=== PATIENT | female | born 1970 | race Caucasian/White ===

== ENCOUNTER 2017-04-26 05:22 | Observation (INO) | payer OTHER ==
--- NOTE | ~2017-04-26 | DS ---
Discharge Summary [facility] [address] [place]. [address] NAME: KIN MADDEN : 74 STATUS : DIS Rosa PAT#: [id number] AGE: 47 ADM/REG DATE : 04/26/17 MR#: [id number] REPORT SERV DATE: 04/28/17 DICTATED BY: HERACLIO GAGE DATE: 04/28/17 REPORT STATUS : Draft TRANSCRIBED BY: MODL DATE: 04/28/17 ADMISSION DATE: 04/26/2017 DISCHARGE DATE: 04/28/2017 DISCHARGE DIAGNOSES: 1. Urinary tract infection, positive Proteus mirabilis. 2. Nausea and vomiting, resolved. 3. Chronic lymphocytic leukemia. 4. Diarrhea, resolved. 5. Hypokalemia, replaced. IMAGING: CT abdomen and pelvis, 04/26/2017, impression: Evidence for retroperitoneal adenopathy extending into the common iliac chains bilaterally centrally, consistent with history of CLL. No organomegaly is noted. LABORATORY DATA: WBC is 5.3, hemoglobin 11.1, hematocrit 32.1, platelet count is 124. Sodium is 144, potassium is 3.4, chloride is 110, CO2 is 25, BUN is 2, creatinine 0.75, glucose is 78, calcium is 8.3, magnesium is 2.1. COURSE OF HOSPITAL STAY: Please refer to history and physical dictated by Dr. Franck Fontana on 04/26/2017 for complete admission details. This patient is a 47-year-old patient who presented to [facility]'s Emergency Room with complaints of nausea, vomiting, fever, and chills. She does present with a history of CLL and possible B-cell lymphoma, is under the care of Dr. Perez. At this time, she is on oral chemo. 1. UTI. Positive Proteus mirabilis. The patient was admitted to the hospital under observation. Urine specimen was collected. The patient was initially started on Rocephin. The patient was discharged home on Duricef, first dose to be given prior to discharge. The patient will follow up with her primary care. The patient did state that she was having no burning with urination and no increase in frequency upon discharge. 2. Nausea and vomiting, resolved. Upon admission, the patient was having nausea and vomiting. IV fluids were initiated as well as antiemetics. This did resolve within 24 hours. The patient has been tolerating a regular diet. 3. CLL. The patient is under the care Dr. Perez, is on oral chemotherapy. The patient was evaluated by Dr. Shay during her hospital stay. The patient's Imbruvica was held during her stay. She has been advised to restart it following completion of her antibiotic. She did state understanding. 4. Diarrhea. The patient did have complaints of a loose stool upon admission. Stool studies were completed which were negative. Upon discharge, the patient stated this had resolved. 5. Hypokalemia. The patient's potassium was 3.4, this was replaced prior to discharge. DISCHARGE MEDICATIONS: 1. Duricef 500 mg one p.o. twice daily. Discharge Summary [address] [address] NAME: KIN MADDEN : 74 STATUS : DIS Rosa PAT#: [id number] AGE: 47 ADM/REG DATE : 04/26/17 MR#: [id number] REPORT SERV DATE: 04/28/17 DICTATED BY: HERACLIO GAGE DATE: 04/28/17 REPORT STATUS : Draft TRANSCRIBED BY: CECILIA DATE: 04/28/17 2. Lexapro 10 mg one p.o. daily. 3. Imbruvica 140 mg one p.o. every morning to restart after completion of antibiotics. 4. Zantac 150 mg one p.o. daily. 5. Multivitamin p.o. daily. 6. Vitamin B12 sublingual daily. This patient is being discharged home in a hemodynamically stable condition. She will follow up with her primary care and with Dr. Perez. Prescriptions were provided, antibiotic and antiemetic. The patient did agree with the treatment plan. Discharge order took less than 30 minutes. DICTATED BY: Heraclio Gage NP [facility]/CECILIA Heraclio Gage NP / [id number] CC: Sotero Negrete M.D.
--- NOTE | ~2017-04-26 | HP ---
History And Physical [place] [id number] [facility] [place]. [address] NAME: KIN MADDEN : 74 STATUS : ADM Rosa PAT#: [id number] AGE: 47 ADM/REG DATE : 04/26/17 MR#: [id number] REPORT SERV DATE: 04/26/17 DICTATED BY: GARFIELD SAGASTUME DATE: 04/26/17 REPORT STATUS : Draft TRANSCRIBED BY: MODL DATE: 04/26/17 DATE OF ADMISSION: 04/26/2017 CHIEF COMPLAINT: A 47-year-old female with CLL and possible B-cell lymphoma as well, now presenting with nausea, vomiting, fevers, chills. HISTORY OF PRESENT ILLNESS: The patient's history was obtained through careful interview with the patient and coupled with review of [facility] and [employer] medical records. The patient was first diagnosed with CLL in 2011, started chemotherapy, and went into remission within a year. She apparently had a recurrence in 2015, has been on an oral chemotherapy agent ever since. There is a possibility of lymphadenopathy and secondary lymphoma as well (?), but reviewing our records, we are unable to find a CT scan to verify this. There was a lymph node biopsy during a cholecystectomy in 2011 that showed B-cell lymphoma. But on 04/23/2017, the patient had sudden onset of illness with nausea, vomiting, diarrhea with watery stool about five or six a day. She did have a very poor appetite. She has had almost nothing to eat in about 24 hours now. She describes fevers, chills, hot flashes, and diaphoresis. She has had light headedness. No weight loss. No confusion. She describes upper abdominal discomfort, soreness, aching spasm like quality, 4 to 5/10 severity. She has had mild dysuria and a foul odor to her urine but no urine frequency. No shortness of breath. No cough. No chest pain. REVIEW OF SYSTEMS: Otherwise, a 14-point review of systems was obtained and was negative. PAST MEDICAL HISTORY: 1. CLL. 2. B-cell lymphoma (?). 3. Obstructive sleep apnea, but does not use CPAP. 4. B12 deficiency. 5. Asthma, seasonal. 6. Urinary tract infection. 7. Depression and anxiety. 8. No cardiac disease. PAST SURGICAL HISTORY: 1. Cholecystectomy. 2. Port-A-Cath placement. History And Physical [place] [address] [place]. [address] NAME: KIN MADDEN : 74 STATUS : ADM Rosa PAT#: [id number] AGE: 47 ADM/REG DATE : 04/26/17 MR#: [id number] REPORT SERV DATE: 04/26/17 DICTATED BY: GARFIELD SAGASTUME DATE: 04/26/17 REPORT STATUS : Draft TRANSCRIBED BY: CECILIA DATE: 04/26/17 3. Tubal ligation. ALLERGIES: SULFA. SOCIAL HISTORY: She is . Lives in [place], [place]. No tobacco abuse. No alcohol abuse. She works for [employer] and volunteers for [employer]. She has two children. FAMILY HISTORY: Mother and father with obstructive sleep apnea. Strong family history of heart disease and diabetes. CURRENT MEDICATIONS: Unknown at this time. The patient does take some kind of oral chemotherapy regimen. We will ask pharmacy to pursue medication list during the daytime hours. PHYSICAL EXAMINATION: VITAL SIGNS: Temperature 98.5, pulse 106, blood pressure 129/80, respiratory rate 18, and O2 saturation 94% on room air. GENERAL: A pleasant, cooperative female, in no evidence of distress at this time. HEENT: Pupils equal, round, and reactive to light. No conjunctival pallor. No scleral icterus. Nares are patent. Oropharynx is clear of obstruction. Moist mucous membranes. NECK: Trachea midline. No thyromegaly. LYMPH: No cervical lymphadenopathy. No supraclavicular lymphadenopathy. No bilateral inguinal lymphadenopathy. RESPIRATORY: Clear to auscultation at bases. No wheezes, rales, or rhonchi. Normal respiratory effort. CARDIOVASCULAR: Tachycardic. Regular rhythm. No murmurs, rubs, or gallops. No extremity edema is appreciated. ABDOMEN: Soft, nontender, nondistended. Normal bowel sounds auscultated throughout. No hepatosplenomegaly. DERMATOLOGICAL: Warm and dry extremities. No pallor. No cyanosis. PSYCHIATRIC: Normal affect. Good mood. Alert and oriented x3. LABORATORY DATA: White blood cell count 7.7, hemoglobin 14, hematocrit 40, and platelets 173. Sodium 136, potassium 3.0, chloride 102, bicarb 24, BUN 11, creatinine 0.94, glucose 133. Urinalysis shows moderate leukocyte esterase, 101 white blood cells, and 30 hyaline casts. STUDIES: A CT scan of the abdomen shows retroperitoneal bulky lymphadenopathy. ASSESSMENT AND PLAN: 1. Urinary tract infection. Check urine culture. Place on IV antibiotics. 2. Diarrhea. Check stool studies. 3. CLL with normal CBC at this time. 4. Retroperitoneal lymphadenopathy. Unable to find a comparison CT scan in our records. Consult Dr. Perez, oncologist. I am concerned about B-cell lymphoma. History And Physical [address] [place]. [address] NAME: KIN MADDEN : 74 STATUS : ADM Rosa PAT#: [id number] AGE: 47 ADM/REG DATE : 04/26/17 MR#: [id number] REPORT SERV DATE: 04/26/17 DICTATED BY: GARFIELD SAGASTUME DATE: 04/26/17 REPORT STATUS : Draft TRANSCRIBED BY: CECILIA DATE: 04/26/17 [facility]/CECILIA Garfield Sagastume M.D. / [id number] CC: Irma Howard IV, M.D.
[2017-04-26 04:47] LABS: BASOPHILS 0.3 %; BASOPHILS ABSOLUTE 0.02 10/3/uL (0.0-0.16); EOSINOPHILS 0.6 %; EOSINOPHILS ABSOLUTE 0.05 10/3/uL (0.0-0.53); IMMATURE GRANULOCYTES ABSOLUTE 0.08 10/3/uL (0.0-0.11); LYMPHOCYTES 34.9 %; LYMPHOCYTES ABSOLUTE 2.69 10/3/uL (0.67-4.30); MEAN CORPUS HGB CONC 34.6 g/dL (32.0-36.0); MEAN CORPUSCULAR HEMOGLOB 29.5 pg (26.0-34.0); MEAN PLATELET VOLUME 11.1 fL (9.2-13.0); MONOCYTES ABSOLUTE 0.85 10/3/uL (0.21-1.20); NEUTROPHILS 52.2 %; NEUTROPHILS ABSOLUTE 4.02 10/3/uL (2.02-8.40); RBC DISTRIBUTION WIDTH 13.3 % (12.0-16.0)
[2017-04-26 04:48] LABS: HEMATOCRIT 39.6 % (36.0-48.0); HEMOGLOBIN 13.7 g/dL (12.0-16.0); MANUAL DIFF NO %; MEAN CORPUSCULAR VOLUME 85.2 fL (80-100); PLATELET COUNT 173 10/3/uL (150-400); RED CELL COUNT 4.65 10/6/uL (4.0-5.6); WHITE BLOOD CELLS 7.7 10/3/uL (4.5-10.5)
[2017-04-26 05:06] LABS: ALBUMIN 3.8 G/DL (3.5-5.0); ALKALINE PHOSPHATASE 76 U/L (45-117); BUN (BLOOD UREA NITROGEN) 11 MG/DL (6-23); CALCIUM, SERUM 8.4 MG/DL (8.5-10.4); CHLORIDE, SERUM 102 MMOL/L (96-112); CO2 (CARBON DIOXIDE) 24 MMOL/L (24-34); CREATININE 0.94 MG/DL (0.55-1.02); GFR AFRICAN AMERICAN 85 ML/MIN (>=60); GFR NON AFRICAN AMERICAN 73 ML/MIN (>=60); SGOT(AST) 17 U/L (5-40); SGPT(ALT) 21 U/L (5-65); SODIUM, SERUM 136 MMOL/L (135-148); TOTAL PROTEIN 6.9 G/DL (6.0-8.5)
[2017-04-26 05:07] LABS: A/G RATIO 1.2 (0.7-1.9); GLOBULIN 3.1 G/DL (2.5-4.1); GLUCOSE, SERUM 133 MG/DL (60-99); TOTAL BILIRUBIN 0.9 MG/DL (0-1.2)
[~2017-04-26 05:22] MED LIST: ACET500CAP PO
[2017-04-26 05:25] LABS: ASCORBIC ACID (UR NOT ORDER) NEG (NEG); BILIRUBIN, URINE SMALL (NEG); ER URINALYSIS TAT 0 Hrs 00 Mins; KETONE, URINE NEGATIVE (NEG); LEUKOCYTE ESTERASE(NOT OR MOD (NEG); NITRITE (URINE) NEG (NEG); WBC (NOT ORDERED) (RFLEX) 101 (0-5)
[2017-04-26 13:40] LABS: BASOPHILS 0.4 %; BASOPHILS ABSOLUTE 0.02 10/3/uL (0.0-0.16); EOSINOPHILS ABSOLUTE 0.05 10/3/uL (0.0-0.53); HEMOGLOBIN 11.5 g/dL (12.0-16.0); IMMATURE GRANULOCYTES 1.5 %; IMMATURE GRANULOCYTES ABSOLUTE 0.08 10/3/uL (0.0-0.11); INTERNATIONAL NORMAL RATI 1.2 UNITS (-); LYMPHOCYTES 55.7 %; LYMPHOCYTES ABSOLUTE 2.91 10/3/uL (0.67-4.30); MEAN CORPUS HGB CONC 34.5 g/dL (32.0-36.0); MEAN CORPUSCULAR HEMOGLOB 29.3 pg (26.0-34.0); MEAN CORPUSCULAR VOLUME 84.9 fL (80-100); MEAN PLATELET VOLUME 10.6 fL (9.2-13.0); MONOCYTES 13.2 %; MONOCYTES ABSOLUTE 0.69 10/3/uL (0.21-1.20); NEUTROPHILS 28.2 %; NEUTROPHILS ABSOLUTE 1.47 10/3/uL (2.02-8.40); PLATELET COUNT 138 10/3/uL (150-400); PROTIME (NOT ORD) 15.4 SEC (12.0-14.5); RBC DISTRIBUTION WIDTH 13.4 % (12.0-16.0); RED CELL COUNT 3.92 10/6/uL (4.0-5.6); WHITE BLOOD CELLS 5.2 10/3/uL (4.5-10.5)
[2017-04-26 13:42] LABS: HEMATOCRIT 33.3 % (36.0-48.0); MANUAL DIFF NO %
[2017-04-26 13:55] LABS: A/G RATIO 1.2 (0.7-1.9); ALBUMIN 3.1 G/DL (3.5-5.0); BUN (BLOOD UREA NITROGEN) 8 MG/DL (6-23); CALCIUM, SERUM 7.8 MG/DL (8.5-10.4); CHLORIDE, SERUM 109 MMOL/L (96-112); CO2 (CARBON DIOXIDE) 28 MMOL/L (24-34); CREATININE 0.75 MG/DL (0.55-1.02); GFR AFRICAN AMERICAN 112 ML/MIN (>=60); GFR NON AFRICAN AMERICAN 96 ML/MIN (>=60); GLOBULIN 2.6 G/DL (2.5-4.1); POTASSIUM, SERUM 3.3 MMOL/L (3.5-5.3); SGOT(AST) 13 U/L (5-40); SGPT(ALT) 17 U/L (5-65); TOTAL BILIRUBIN 0.6 MG/DL (0-1.2); TOTAL PROTEIN 5.7 G/DL (6.0-8.5)
[2017-04-26 13:56] LABS: ALKALINE PHOSPHATASE 64 U/L (45-117); GLUCOSE, SERUM 94 MG/DL (60-99); SODIUM, SERUM 144 MMOL/L (135-148)
[2017-04-26] MEDS ORDERED: IMBRU140C PO (19:27)
[2017-04-26] MEDS ORDERED: LEXAPRO10 PO (19:27)
[2017-04-26] MEDS ORDERED: VITAMIN B-122500 MCG SL (19:28)
[2017-04-26] MEDS ORDERED: ZANTAC 150 PO (19:28)
[2017-04-26] MEDS ORDERED: MULTIVIT/MIN PO (19:28)
[2017-04-27 07:31] LABS: BUN (BLOOD UREA NITROGEN) 6 MG/DL (6-23); CALCIUM, SERUM 7.7 MG/DL (8.5-10.4); CHLORIDE, SERUM 113 MMOL/L (96-112); CO2 (CARBON DIOXIDE) 24 MMOL/L (24-34); CREATININE 0.66 MG/DL (0.55-1.02); GFR AFRICAN AMERICAN 124 ML/MIN (>=60); GFR NON AFRICAN AMERICAN 107 ML/MIN (>=60); GLUCOSE, SERUM 85 MG/DL (60-99); POTASSIUM, SERUM 3.4 MMOL/L (3.5-5.3); SODIUM, SERUM 143 MMOL/L (135-148)
[2017-04-28 05:36] LABS: BASOPHILS 0.4 %; BASOPHILS ABSOLUTE 0.02 10/3/uL (0.0-0.16); EOSINOPHILS 3.8 %; HEMATOCRIT 32.1 % (36.0-48.0); HEMOGLOBIN 11.1 g/dL (12.0-16.0); IMMATURE GRANULOCYTES 2.1 %; IMMATURE GRANULOCYTES ABSOLUTE 0.11 10/3/uL (0.0-0.11); LYMPHOCYTES 50.9 %; LYMPHOCYTES ABSOLUTE 2.71 10/3/uL (0.67-4.30); MEAN CORPUS HGB CONC 34.6 g/dL (32.0-36.0); MEAN CORPUSCULAR HEMOGLOB 29.5 pg (26.0-34.0); MEAN CORPUSCULAR VOLUME 85.4 fL (80-100); MEAN PLATELET VOLUME 10.5 fL (9.2-13.0); MONOCYTES 12.4 %; MONOCYTES ABSOLUTE 0.66 10/3/uL (0.21-1.20); NEUTROPHILS 30.4 %; NEUTROPHILS ABSOLUTE 1.62 10/3/uL (2.02-8.40); PLATELET COUNT 124 10/3/uL (150-400); RBC DISTRIBUTION WIDTH 13.3 % (12.0-16.0); RED CELL COUNT 3.76 10/6/uL (4.0-5.6); WHITE BLOOD CELLS 5.3 10/3/uL (4.5-10.5)
[2017-04-28 05:37] LABS: MANUAL DIFF NO %
[2017-04-28 05:46] LABS: BUN (BLOOD UREA NITROGEN) 2 MG/DL (6-23); CALCIUM, SERUM 8.3 MG/DL (8.5-10.4); CHLORIDE, SERUM 110 MMOL/L (96-112); CO2 (CARBON DIOXIDE) 25 MMOL/L (24-34); CREATININE 0.75 MG/DL (0.55-1.02); GFR AFRICAN AMERICAN 112 ML/MIN (>=60); GFR NON AFRICAN AMERICAN 96 ML/MIN (>=60); GLUCOSE, SERUM 78 MG/DL (60-99); POTASSIUM, SERUM 3.4 MMOL/L (3.5-5.3); SODIUM, SERUM 144 MMOL/L (135-148)
[2017-04-28] MEDS ORDERED: DURICEF PO (10:07)
[2017-04-28] MEDS ORDERED: ZOFRAN4 PO (10:10)
[2017-08-17] MEDS ORDERED: LEXAPRO5 MG PO (18:59)
[2017-08-17] MEDS ORDERED: MULTIVITAMI1 PO (18:59)
[2017-08-17] MEDS ORDERED: VITAMIN B-122500 MCG SL (18:59)
[2017-08-17] MEDS ORDERED: ZOFRAN ODT4 MG PO (19:00)
[2017-08-21] MEDS ORDERED: PCET PO (11:19)
[2017-08-21] MEDS ORDERED: P20 PO (11:20)
[2017-08-21] MEDS ORDERED: ZOFRAN ODT4 MG PO (11:20)
[2017-08-21] MEDS ORDERED: PR25 PO (11:21)
[2017-08-21] MEDS ORDERED: Z300 PO (11:21)
[2017-08-21] MEDS ORDERED: T PO (11:25)
[2017-08-21] MEDS ORDERED: MIRALAX POWDER1 PKT PO (11:25)
[2017-08-21] MEDS ORDERED: SENTAB PO (11:26)
[2017-08-21] MEDS ORDERED: MYTAB GAS80 MG PO (11:26)
== END 2017-04-28 11:38 | disposition home or self-care (01) ==
LOC: ER 05:22 → 4EA 06:37
PROVIDERS: Internal Medicine; Nurse Practitioner Adult Health; Specialist
DX: N39.0 Urinary tract infection, site not specified (principal); B96.4 Proteus (mirabilis) (morganii) as the cause of diseases classified elsewhere; C91.10 Chronic lymphocytic leukemia of B-cell type not having achieved remission; R19.7 Diarrhea, unspecified; E87.6 Hypokalemia; G47.33 Obstructive sleep apnea (adult) (pediatric); E53.8 Deficiency of other specified B group vitamins; J45.909 Unspecified asthma, uncomplicated; F32.9 Major depressive disorder, single episode, unspecified; F41.9 Anxiety disorder, unspecified; Z90.49 Acquired absence of other specified parts of digestive tract; Z98.51 Tubal ligation status; Z88.2 Allergy status to sulfonamides; Z82.49 Family history of ischemic heart disease and other diseases of the circulatory system; Z83.3 Family history of diabetes mellitus; Z84.89 Family history of other specified conditions; Z79.899 Other long term (current) drug therapy; Z98.890 Other specified postprocedural states
CPT/HCPCS: 74176; 80048; 80053; 81001; 83690; 83735; 84443; 85025; 85610; 87040; 87077; 87086; 87186; 87328; 87329; 87493; 87493-59; 96365; 96366; 96367; 96372; 96375; 96376; 99285; A9270-GY; C9113; G0378; J2405; J3475